=== PATIENT | female | born 1950 | race Caucasian/White ===

== ENCOUNTER 2017-12-11 10:14 | Emergency (ER) | payer OTHER, BC ==
[~2017-12-11] VITALS: Ht 162.6 cm; Wt 68.2 kg
[2017-12-11 10:20] VITALS: BP 177/103
== END 2017-12-11 13:55 | disposition home or self-care (01) ==
LOC: EXP 10:14 → EME 10:14 → EXP 13:55
PROC: 0HQGXZZ Repair Left Hand Skin, External Approach (ICD-10-PCS; principal; 2017-12-11)
DX: S61.213A Laceration without foreign body of left middle finger without damage to nail, initial encounter (principal); W27.2XXA Contact with scissors, initial encounter; F32.9 Major depressive disorder, single episode, unspecified
CPT/HCPCS: 99281; 99284